=== PATIENT | female | born 1945 | race Caucasian/White ===

== ENCOUNTER 2016-09-16 12:33 | Emergency (ER) | payer MEDICARE ==
--- NOTE | ~2016-09-16 | CR281 ---
[facility]. [facility] A Service of [facility] & [facility] RADIOLOGY TEXT RESULTS PATIENT: DIONISIO BARRAGAN LOCATION: SED : 49 UNIT #: [id number] AGE: [address]: Abad Francois MD SEX: F ORDER DR: [id number] [address] [address] [id number] E MR#: [id number] Acc #: [id number] NAME: DIONISIO BARRAGAN : 1945 SEX: F STUDY DATE/TIME: 09/16/2016 14:28 UNIT: SED ROOM: STUDY DESCRIPTION: CR Wrist Min 3 View Lt Attending Physician: Abad Francois M.D. Ordering Physician: Abad Francois M.D. Primary Care Physician: Ibeth Cueva M.D. MEDICAL IMAGING REPORT This report is preliminary unless electronic signature is present. EXAM Left wrist 3 views INDICATIONS Left arm pain throughout the entire arm after falling 3 days ago. COMPARISON No comparisons. FINDINGS Osteopenia. There is deformity of the medial aspect of the distal radius that likely represents an impacted fracture. Carpal alignment maintained. Soft tissue swelling about the wrist. IMPRESSION Osteopenia with what appears to be an impacted fracture of the distal radius, as described. Dictated by... Isra Mcdaniels M.D. THIS IS AN ELECTRONICALLY VERIFIED REPORT Isra Mcdaniels M.D. at 09/17/2016 7:38 AM [place]/jose m TD: 09/16/2016 18:23 JOB #: [id number] MEDICAL IMAGING REPORT Page 1 of 1
--- NOTE | ~2016-09-16 | CR151 ---
[facility]. [facility] A Service of [facility] & [facility] RADIOLOGY TEXT RESULTS PATIENT: DIONISIO BARRAGAN LOCATION: SED : 49 UNIT #: [id number] AGE: [address]: Abad Francois MD SEX: F ORDER DR: [id number] [place] [id number] E MR#: [id number] Acc #: [id number] NAME: DIONISIO BARRAGAN : 1945 SEX: F STUDY DATE/TIME: 09/16/2016 14:28 UNIT: SED ROOM: STUDY DESCRIPTION: CR Hip Min 2 Views Rt Attending Physician: Abad Francois M.D. Ordering Physician: Abad Francois M.D. Primary Care Physician: Ibeth Cueva M.D. MEDICAL IMAGING REPORT This report is preliminary unless electronic signature is present. EXAM Right hip, 2 views INDICATION Right hip pain after falling 3 days ago. COMPARISON 11/12/2014 FINDINGS No acute fracture or dislocation. Mild degenerative change at the symphysis pubis and also involving the lower lumbar spine. IMPRESSION No fracture or dislocation. Dictated by... Isra Mcdaniels M.D. THIS IS AN ELECTRONICALLY VERIFIED REPORT Isra Mcdaniels M.D. at 09/17/2016 7:38 AM [place]/jose m TD: 09/16/2016 18:46 JOB #: [id number] MEDICAL IMAGING REPORT Page 1 of 1
--- NOTE | ~2016-09-16 | CR71 ---
[facility]. [facility] A Service of [facility] & [facility] RADIOLOGY TEXT RESULTS PATIENT: DIONISIO BARRAGAN LOCATION: SED : 49 UNIT #: [id number] AGE: [address]: Abad Francois MD SEX: F ORDER DR: [id number] [address] [address] [id number] E MR#: [id number] Acc #: [id number] NAME: DIONISIO BARRAGAN : 1945 SEX: F STUDY DATE/TIME: 09/16/2016 14:28 UNIT: SED ROOM: STUDY DESCRIPTION: CR Chest Single View Attending Physician: Abad Francois M.D. Ordering Physician: Abad Francois M.D. Primary Care Physician: Ibeth Cueva M.D. MEDICAL IMAGING REPORT This report is preliminary unless electronic signature is present. EXAM Portable chest INDICATIONS Shortness of breath for 3 days. COMPARISON Comparison with 11/12/2014 FINDINGS Old bilateral rib fractures are again noted. No definite acute infiltrate. Heart size normal. IMPRESSION Old rib fractures bilaterally. No definite acute findings. Dictated by... Isra Mcdaniels M.D. THIS IS AN ELECTRONICALLY VERIFIED REPORT Isra Mcdaniels M.D. at 09/17/2016 7:38 AM Judie TD: 09/16/2016 18:34 JOB #: [id number] MEDICAL IMAGING REPORT Page 1 of 1
--- NOTE | ~2016-09-16 | CR90 ---
[facility]. [facility] A Service of [facility] & [facility] RADIOLOGY TEXT RESULTS PATIENT: DIONISIO BARRAGAN LOCATION: SED : 49 UNIT #: [id number] AGE: [address]: Abad Francois MD SEX: F ORDER DR: [id number] [address] [address] [id number] E MR#: [id number] Acc #: [id number] NAME: DIONISIO BARRAGAN : 1945 SEX: F STUDY DATE/TIME: 09/16/2016 14:28 UNIT: SED ROOM: STUDY DESCRIPTION: CR Elbow 2 View Lt Attending Physician: Abad Francois M.D. Ordering Physician: Abad Francois M.D. Primary Care Physician: Ibeth Cueva M.D. MEDICAL IMAGING REPORT This report is preliminary unless electronic signature is present. EXAM Left elbow 3 views INDICATIONS Entire arm pain on the left after falling 3 days ago. COMPARISON STUDIES No comparisons available. FINDINGS The study is limited due to patient positioning as there is not a true AP view. There are lateral and oblique views. The lateral view demonstrates what appears to be a small elbow joint effusion. There is no definite underlying fracture noted. Osteopenia. IMPRESSION Study is limited due to positioning and underlying osteopenia. There is no definite underlying fracture however there appears to be a small elbow joint effusion and occult fracture cannot entirely be excluded. Correlate with symptoms. Dictated by... Isra Mcdaniels M.D. THIS IS AN ELECTRONICALLY VERIFIED REPORT Isra Mcdaniels M.D. at 09/17/2016 7:38 AM Pat TD: 09/16/2016 18:16 JOB #: [id number] MEDICAL IMAGING REPORT Page 1 of 1
[~2016-09-16 12:33] MED LIST: ATIVAN PO; CENTRUM SILVER PO; CLARITIN10 MG PO; COLACE PO; DEPAKOTE PO; DURAGESIC TOP; FLEXERIL10 MG; HUMALOG100 U/ML; KLONOPIN PO; LANTUS100 UNITS/; LEVAQUIN PO; LIDODERM30 EA TOP; LIPITOR PO; LISINOPRIL PO; LORCET 10/650 T1 TAB PO; LYRICA PO; METFORMIN PO; NO; OXYCONTIN PO; OYSTER CALCIUM500 MG PO; PERCOCET PO; SOMA PO; THERAGESIC; VIT B-12 PO; VITAMIN C PO; ZANTAC PO; ZOLOFT PO; ZYRTEC PO
[2016-09-16] MEDS ORDERED: MELATONIN10 M1 (12:46)
[2016-09-16] MEDS ORDERED: HYDROXYZINE HCL25 M1 ×2 (12:46→12:47)
[2016-09-16] MEDS ORDERED: PENICILLIN (12:47)
[2016-09-16] MEDS ORDERED: FLORASTOR (12:47)
[2016-09-16] MEDS ORDERED: BENZONATATE200 M1 (12:48)
[2016-09-16] MEDS ORDERED: SULFAMETHOXAZO1 EAC1 (12:48)
[2016-09-16] MEDS ORDERED: DESITIN DIAPER28 GM (12:49)
[2016-09-16 14:16] LABS: BASOPHIL# 0.1 X10e3 (0-0.3); BASOPHIL% 0.9 % (0-2.5); EOSINOPHIL# 0.1 X10e3 (0-0.7); EOSINOPHIL% 1.3 % (0.0-7.0); HEMATOCRIT 40.5 % (35.0-45.0); HEMOGLOBIN 13.6 gm/dL (12.0-16.0); LYMPHOCYTE# 1.3 X10e3 (1.0-3.5); LYMPHOCYTE% 13.8 % (17.0-45.0); MEAN CELL VOLUME 99.1 FL (83-96); MEAN CORPUSCULAR HEMOGLOBIN 33.2 PG (28-34); MEAN CORPUSCULAR HGB CONC 33.5 g/dL (30-36); MEAN PLATELET VOLUME 9.7 FL (6.5-11.5); MONOCYTE# 0.6 X10e3 (0-1.0); MONOCYTE% 6.9 % (3.0-12.0); NEUTROPHIL# 7.2 X10e3 (1.5-7.1); NEUTROPHIL% 77.1 % (40-75); PLATELET COUNT 239 X10e3 (140-420); RED BLOOD COUNT 4.09 X10e (3.90-5.30); RED CELL DISTRIBUTION WIDTH 13.2 % (11.0-15.5); WHITE BLOOD COUNT 9.4 X10e3 (4.0-10.5)
[2016-09-16 14:18] LABS: DIFF IND NO
[2016-09-16 14:31] LABS: URINE SOURCE CLEAN CATCH
[2016-09-16 14:33] LABS: URINE APPEARANCE CLOUDY; URINE BILIRUBIN NEG (NEG); URINE BLOOD 1+ (NEG); URINE COLOR YELLOW; URINE GLUCOSE 300 MG/DL (NORM); URINE KETONE TRACE (NEG); URINE LEUKOCYTE ESTERASE 1+ (NEG); URINE NITRATE NEG (NEG); URINE PROTEIN 1+ (NEG)
[2016-09-16 14:33] LABS: ALBUMIN SERUM 3.7 g/dL (3.5-5.0); BILIRUBIN, DIRECT 0.2 mg/dL (0.0-0.2); BILIRUBIN,INDIRECT 0.9 mg/dL (0.0-0.9); BILIRUBIN,TOTAL 1.1 mg/dL (0.2-2.0); BUN/CREATININE RATIO 18.57; CREATININE SERUM 0.7 mg/dL (0.6-1.4); GLOM FILT RATE Estimated 88.4 mL/min (>60); PROTEIN TOTAL SERUM 7.9 g/dL (6.0-8.3)
[2016-09-16 14:34] LABS: MICRO INDICATED? YES
[2016-09-16 14:41] LABS: CULTURE INDICATED? YES; URINE BACTERIA 1+ (NEG); URINE RBC 0-2 /[HPF] (0-2); URINE WBC 100-200 /[HPF] (0-5)
[2016-09-16 14:42] LABS: URINE SQUAMOUS EPITHELIAL CELL OCCAS /[HPF]
== END 2016-09-16 18:51 | disposition home or self-care (01) ==
LOC: SED 12:33
PROVIDERS: Emergency Medicine
DX: S52.502A Unspecified fracture of the lower end of left radius, initial encounter for closed fracture (principal); S50.02XA Contusion of left elbow, initial encounter; J44.9 Chronic obstructive pulmonary disease, unspecified; E11.9 Type 2 diabetes mellitus without complications; Z79.4 Long term (current) use of insulin; Z88.8 Allergy status to other drugs, medicaments and biological substances; Z79.899 Other long term (current) drug therapy; W19.XXXA Unspecified fall, initial encounter; Y92.009 Unspecified place in unspecified non-institutional (private) residence as the place of occurrence of the external cause
CPT/HCPCS: 36415; 71010; 73070; 73110; 73502; 80048; 80076; 81003; 82947; 85025; 87086; 87088; 87186; 99284